=== PATIENT | female | born 1990 | race Caucasian/White ===

== ENCOUNTER → 2018-03-21 09:45 | Outpatient (CLI) | payer OTHER, SELFPAY ==
--- NOTE | 2018-03-21 | DI.MRI.S_ITS ---
PROCEDURE: MR KNEE LT WO CON INDICATIONS: LEFT KNEE INJURY TECHNIQUE: Noncontrast sagittal PD fast spin echo and T2 fast spin echo with fat saturation, sagittal 3-D FLASH with fat saturation; coronal T1 spin echo and PD fast spin echo with fat saturation, and axial PD fast spin echo with fat saturation through the knee. COMPARISON: None. FINDINGS: Image quality: Diagnostic. Bones and joint: There is no acute fracture or dislocation. No suspicious osseous lesions are evident. No significant knee joint effusion is identified. There is no Marie's cyst. No significant degenerative changes of the knee are evident. The hyaline articular cartilage is intact within all 3 compartments. Cruciate ligaments: The anterior and posterior cruciate ligaments are intact. There is mildly increased signal present involving anterior cruciate ligament. Menisci: No displaced tears of the medial and lateral menisci are evident. The posterior root ligaments are intact. Increased signal is evident along the periphery of the body and posterior horn of the medial meniscus. Medial structures: The medial collateral ligament is intact. The semimembranosus tendon insertion is intact. The imaged portions of the pes anserinus tendons are unremarkable. No significant fluid is contained within the pes anserinus bursa. Lateral structures: The popliteal tendon is intact. The lateral collateral ligament proper (fibular collateral ligament) and the proximal tibiofibular ligaments are intact. The distal aspect of the biceps femoris tendon and the iliotibial band are intact. Anterior structures: The quadriceps and patellar tendons are intact. However, the lateral margin of the proximal patellar tendon is noted to extend over the anterior aspect of the lateral femoral condyle. There is increased signal involving this portion of the tendon with moderate edema noted within the superolateral aspect of the infrapatellar fat pad. IMPRESSION: 1. Mild proximal patellar tendinopathy with adjacent edema of the infrapatellar fat pad is suggestive of lateral femoral condyle-patellar tendon friction syndrome and clinical correlation is recommended. 2. Increased signal involving the periphery of the medial meniscus may be within normal limits for this patient. There is no displaced medial meniscal tear. 3. Questionable anterior cruciate ligament sprain. No significant tearing. Dictated by: Rhett Banegas M.D. on 03/21/2018 at 10:50 Approved by: Rhett Banegas M.D. on 03/21/2018 at 10:57
== END ==
PROVIDERS: PCP Nurse Practitioner Family; Visit Provider Nurse Practitioner Family
DX: S89.92XA Unspecified injury of left lower leg, initial encounter (principal); M76.52 Patellar tendinitis, left knee
CPT/HCPCS: 73721

== ENCOUNTER → 2021-10-26 10:25 | Outpatient (CLI) | payer MEDICARE, MEDICAID, SELFPAY ==
[2021-10-26 11:15] LABS: Add Manual Diff / Slide Review NO; Basophils Absolute Auto 0 /uL (0-100); Basophils Percent Auto 0.3 % (0-2); Eosinophils Absolute Auto 100 /uL (0-450); Eosinophils Percent Auto 0.7 % (2-4); Hematocrit 34.5 % (36-46); Hemoglobin 11.8 g/dL (12.0-16.0); Lymphocytes Absolute Auto 1700 /uL (1100-4500); Lymphocytes Percent Auto 21.8 % (25-40); Mean Corpuscular HGB Conc 34.2 % (30-36); Mean Corpuscular Hemoglobin 30.2 PG (26-34); Mean Corpuscular Volume 88.3 fL (80-100); Monocytes Absolute Auto 400 /uL (0-900); Neutrophils Absolute Auto 5500 /uL (1500-7000); Neutrophils Percent Auto 72.2 % (50-75); Platelet Count 228 X10^3/uL (150-400); Red Blood Cell Count 3.91 X10^6/uL (4.0-5.2); Red Cell Distribution Width 12.7 % (11.6-14.8); White Blood Cell Count 7.6 X10^3/uL (4.5-11.0)
[2021-10-26 12:41] LABS: Hepatitis B Surface Antigen NEGATIVE s/c (NEGATIVE); Rubella Antibody IgG 89.2 IU/mL (>15)
[2021-10-26 13:00] LABS: HIV 1 & 2 Ab/Ag 4th Gen Combo NEGATIVE (NEGATIVE); Hep C Virus Ab w/Reflex Quant NEGATIVE s/c (NEGATIVE)
[2021-10-26 14:40] LABS: Urine N gonorrhoeae NOT DETECTED
[2021-10-26 15:53] LABS: Urine Chlamydia NOT DETECTED
[2021-10-27 04:42] LABS: RPR Screen Non Reactive (Non Reactive)
[2021-10-27 09:16] LABS: Varicella IgG Antibody <135 index (Immune >165)
== END ==
PROVIDERS: PCP Family Medicine; Referring Provider Specialist; Visit Provider Specialist
DX: Z34.81 Encounter for supervision of other normal pregnancy, first trimester (principal); Z3A.08 8 weeks gestation of pregnancy
CPT/HCPCS: 36415; 80055; 86787; 86803; 86850; 86900; 86901; 87086; 87389; 87491; 87591

== ENCOUNTER → 2022-01-26 12:19 | Outpatient (CLI) | payer MEDICARE, MEDICAID, SELFPAY ==
--- NOTE | 2022-01-26 12:23 | DI.US.S_ITS ---
PROCEDURE: US OB >= 14 WEEKS FETUS INDICATIONS: Anatomy scan OUTSIDE/PRIOR DATING DATA: Last menstrual period (LMP): August 28, 2021. LMP-based estimated date of delivery (DENNY): June 04, 2022. First dating scan (date): October 26, 2021. Estimated date of delivery (DENNY) from first dating scan: June 05, 2022. TECHNIQUE: Real-time scanning was performed of the fetus, with image documentation and biometric measurements. COMPARISON: None. FINDINGS: General: A single living intrauterine gestation is present. Presentation: Vertex. Placenta: Placental position is posterior , without previa. Amniotic fluid index: 12.7 cm, normal range is 5-24 cm. Single deepest vertical pocket is 3.8 cm. heart rate: 160 beats per minute. Maternal cervical canal: 4.2 cm long. Normal lower limit is 2.5 cm. biometrics: Biparietal diameter: 5.2 cm Head circumference: 19.8 cm Abdominal circumference: 17.3 cm Femur length: 3.5 cm Clinically estimated gestational age: 21 weeks, 3 days Composite gestational age from present scan: 21 weeks, 5 days Estimated weight and percentile: 440 g; 56 percentile Anatomic survey: Neuro: Ventricles are non-dilated at less than 10 mm. Cisterna magna is normal at 3-11 mm. Cerebellum is normal in size and morphology. Nuchal skin fold: Normal at less than 6 mm between 14-21 weeks gestational age. Face: Nose and lips, facial profile are normal. Spine: No evidence for spina bifida. Heart: 4-chambered heart is present, with normal ventricular outflow tracts. Diaphragm: Diaphragm is intact. Stomach: Left-sided stomach is present. Kidneys: No hydronephrosis. Normal is less than 5 mm in 2nd trimester, less than 7 mm in 3rd trimester. Cord: 3-vessel cord has orthotopic insertion. Bladder: Normal in size. Extremities: All 4 extremities identified. IMPRESSION: Live single intrauterine gestation as detailed above. We strive to produce accurate, complete, and clear reports of imaging services. To assist us in improving patient care, this report was composed using standard report templates and voice recognition software. Therefore, it may contain abnormal punctuation, insertions and/or omissions. Occasional wrong-word or sound-alike substitutions may occur. Though we review the report and make efforts to correct it, we do recommend that the report be read carefully in proper context to recognize any text inaccuracies. Dictated by: Won Berry M.D. on 01/26/2022 at 15:33 Approved by: Won Berry M.D. on 01/26/2022 at 15:35
== END ==
PROVIDERS: PCP Family Medicine; Referring Provider Specialist; Visit Provider Specialist
DX: Z34.82 Encounter for supervision of other normal pregnancy, second trimester (principal); Z3A.21 21 weeks gestation of pregnancy
CPT/HCPCS: 76811

== ENCOUNTER → 2022-03-24 14:26 | Outpatient (CLI) | payer MEDICARE, MEDICAID, SELFPAY ==
[2022-03-25 08:28] LABS: Candida species Positive (Negative); Gardnerella vaginalis Positive (Negative); Trichomoas vaginalis Negative (Negative)
== END ==
PROVIDERS: PCP Family Medicine; Visit Provider Specialist
DX: Z34.82 Encounter for supervision of other normal pregnancy, second trimester (principal); N89.8 Other specified noninflammatory disorders of vagina; Z3A.29 29 weeks gestation of pregnancy
CPT/HCPCS: 87086; 87480; 87510; 87660

== ENCOUNTER → 2022-04-21 09:41 | Outpatient (CLI) | payer MEDICARE, MEDICAID, SELFPAY ==
[2022-04-21 16:39] LABS: Hematocrit 33.8 % (36-46); Mean Corpuscular HGB Conc 32.6 % (30-36); Mean Corpuscular Hemoglobin 29.2 PG (26-34); Mean Corpuscular Volume 89.6 fL (80-100); Platelet Count 365 X10^3/uL (150-400); Red Blood Cell Count 3.77 X10^6/uL (4.0-5.2); Red Cell Distribution Width 13.4 % (11.6-14.8); White Blood Cell Count 16.2 X10^3/uL (4.5-11.0)
[2022-04-21 17:14] LABS: Alanine Aminotransferase 25 IU/L (<35); Albumin 3.7 g/dL (3.5-5.0); Albumin Globulin Ratio 1.1 (1.0-2.8); Alkaline Phosphatase 184 U/L (38-126); Aspartate Aminotransferase 35 IU/L (14-36); BUN Creatinine Ratio 7.7 (6-22); Bilirubin Total 0.6 mg/dL (0.2-1.3); Blood Urea Nitrogen 4 mg/dL (7-17); Calcium 10.6 mg/dL (8.4-10.2); Carbon Dioxide 21 mmol/L (22-32); Chloride 104 mmol/L (98-107); Estimated Glomerular Filt Rate > 60 mL/min (>60); Globulin 3.3 g/dL (1.7-4.1); Glucose 75 mg/dL (70-100); HEMOLYSIS 49 (0-50); Potassium 3.8 mmol/L (3.4-5.1); Sodium 135 mmol/L (137-145)
[2022-04-22 09:37] LABS: Bile Acids 3.5 umol/L (0.0-10.0)
== END ==
PROVIDERS: Referring Provider Obstetrics & Gynecology; Visit Provider Obstetrics & Gynecology
DX: L29.9 Pruritus, unspecified (principal); O99.719 Diseases of the skin and subcutaneous tissue complicating pregnancy, unspecified trimester
CPT/HCPCS: 36415; 80053; 82239; 85027

== ENCOUNTER → 2022-05-11 08:41 | Outpatient (CLI) | payer MEDICARE, MEDICAID, SELFPAY ==
[2022-05-12 07:52] LABS: Strep Grp B PCR NEG for Grp B Strep
== END ==
PROVIDERS: Visit Provider Obstetrics & Gynecology
DX: Z34.83 Encounter for supervision of other normal pregnancy, third trimester (principal); Z3A.36 36 weeks gestation of pregnancy
CPT/HCPCS: 87653

== ENCOUNTER → 2022-05-25 08:46 | Outpatient (CLI) | payer MEDICARE, MEDICAID, SELFPAY | PROVIDERS: Visit Provider Obstetrics & Gynecology | DX: Z34.83 Encounter for supervision of other normal pregnancy, third trimester (principal); Z3A.32 32 weeks gestation of pregnancy | CPT/HCPCS: 87086 ==

== ENCOUNTER 2022-06-02 08:21 | Inpatient (IN) | payer MEDICARE, MEDICAID, SELFPAY ==
[2022-06-02 09:31] LABS: Add Manual Diff / Slide Review NO; Basophils Absolute Auto 100 /uL (0-100); Basophils Percent Auto 0.6 % (0-2); Eosinophils Absolute Auto 100 /uL (0-450); Eosinophils Percent Auto 0.3 % (2-4); Hematocrit 32.6 % (36-46); Hemoglobin 10.8 g/dL (12.0-16.0); Lymphocytes Absolute Auto 3100 /uL (1100-4500); Lymphocytes Percent Auto 17.4 % (25-40); Mean Corpuscular HGB Conc 33.2 % (30-36); Mean Corpuscular Hemoglobin 28.5 PG (26-34); Mean Corpuscular Volume 85.8 fL (80-100); Monocytes Absolute Auto 600 /uL (0-900); Monocytes Percent Auto 3.5 % (3-14); Neutrophils Absolute Auto 13700 /uL (1500-7000); Neutrophils Percent Auto 78.2 % (50-75); Platelet Count 383 X10^3/uL (150-400); Red Cell Distribution Width 14.4 % (11.6-14.8); White Blood Cell Count 17.5 X10^3/uL (4.5-11.0)
--- NOTE | 2022-06-02 10:12 | PM.OBHP.1 ---
OB HPI Date/Time Date of admission: 06/02/22 Date Patient Seen: 06/02/22 Time Patient Seen: 10:26 History of Present Condition Chief complaint: Repeat C Section : 2 Para: 1 Estimated Gestational Age (weeks): 39week Narrative: Alem Diana is a 31 year old female at 39 weeks EGA who has a history of a prior section. she desires proceeding with repeat section for delivery. She was scheduled for her repeat later this afternoon and was brought in early due to calling with spontaneous rupture membranes and contractions. Patient had spontaneous rupture membranes followed by uncomfortable contractions. has been complicated by some episodes of chest pain with UD visits. She has had normal EKGs and evaluations. At her last evaluation she was diagnosed with gallstones, felt to be causing some of her discomfort. She has had no acute cholecystitis however. Indications Operative indications ( section): previous uterine surgery ( History of ) Other reason(s) for admission: spontaneous rupture membranes, labor History of Present care: good care Dating criteria: LMP confirmed by 1st trimester US Preadmission Labs Blood type: O (+) positive -: Antibody screen: negative, GBS status: negative, HBsAG: negative, HSV 1: negative and RPR/VDLR: negative -: Chlamydia screen: not detected and Gonorrhea screen: not detected -: Rubella: immune and Varicella: immune HCAB: negative Quad screen: Normal 1 hr GTT: 128 Evaluation Evaluation Baseline heart rate: 135 Variability: Average (6-10) monitor accelerations: Present Monitor Decelerations: Absent Contraction Frequency (minutes): 6 Uterine Contraction Intensity: Moderate Category of Tracing: Reactive Status: Category l Dilation (cm): 2 Effacement (%): 50 [facility] Medical History (Updated 06/02/22 @ 10:35 by Chrystal Cage MD) ADHD (~2016) Anemia Anxiety Carpal tunnel syndrome (~2009) delivery delivered (~12/08/14) Chronic back pain (~2005) Constipation Fatigue due to depression Heart murmur (~1992) Heavy menses (~2005) Hemorrhoids Hyperparathyroidism (~2021) Migraines (~1998) Personality disorder (~2012) PTSD (post-traumatic stress disorder) (~1999) Recurrent UTI Tinnitus (~2008) Family History (Updated 10/20/21 @ 10:42 by Terrie Werner RN) Mother Breast cancer Ovarian cancer Colon cancer Family estrangement Hypochondriacal disorder Bipolar 1 disorder Alcohol abuse Father Family estrangement Family history unknown Grandmother Brain tumor Schizophrenia Grandfather Hyperlipidemia Hypertension Myocardial infarction Hx of CABG Depression Grandmother Family history unknown Grandfather Family history unknown Sister Ovarian tumor (benign) Brother Schizophrenia Alcohol abuse Social History marital status: unmarried,single (Engaged, adolfo involved with .) number of children: 1 household members: children (Julián' has child, but he does not have custody. 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 ) current occupational exposures/hazards: No special brendon needs: No seatbelt use: always helmet use: Yes water heater temp set < 120 deg: Yes working smoke detector in home: Yes fire extinguisher in home: Yes carbon monox detector in home: Yes firearms in home: No do you feel safe at home: Yes Smoking Status: Current some day smoker (Still vaping some, trying to quit. Used to smoke 1 ppd, but varied off & on. ) Tobacco: How many years used: 3 quit status: quit date established (2017) second hand exposure: Yes (Partner vapes, not much around her. ) alcohol intake: former (Rare, < 1 x a month. ) substance use type: does not use during the past year weight has: decreased > 10 lbs well-balanced diet: rarely or never (Have a hard time eating) daily servings fruits/ve-1 caffeine: Yes (trying to cut back, but typically 6 sodas a day. ) frequency: does not exercise Meds Home Medications and Allergies Home Medications Medication Instructions Recorded Confirmed Type prenat.vits,alon,soc-vxom-tkuct 1 tab PO DAILY #90 tabs 10/01/21 05/11/22 Rx ferrous sulfate 300 mg (60 mg 300 mg (5 mL) PO DAILY Anemia and 10/26/21 05/11/22 Rx iron)/5 mL oral liquid inability to tolerate pills #120 mL omeprazole 40 mg capsule,delayed 40 mg PO DAILY acid reflux #30 caps 01/05/22 05/11/22 Rx release clindamycin HCl 300 mg capsule 300 mg PO TID Vaginal infection 03/25/22 05/11/22 Rx #21 caps fluconazole 150 mg tablet 150 mg PO Q3D Yeast infection 2 03/25/22 05/11/22 Rx (Diflucan) doses #2 tabs Allergies Allergy/AdvReac Type Severity Reaction Status Date / Time No Known Drug Allergies Allergy Verified 05/11/22 08:40 OB Exam Narrative Exam Narrative: General: Well-appearing female. Appears uncomfortable with contractions. Mildly anxious with the contractions. Cardio: Heart regular rhythm Lungs normal: inspiratory effort Abdomen gravid, nontender Extremities mild pedal edema Pelvic examination: Cervix 2/50% by CNM. Objective Labs Result Diagrams: 06/02/22 09:16 Labs: Laboratory Results - last 24 hr 06/02/22 09:16 WBC 17.5 H RBC 3.80 L Hgb 10.8 L Hct 32.6 L MCV 85.8 MCH 28.5 MCHC 33.2 RDW 14.4 Plt Count 383 Neut % (Auto) 78.2 H Lymph % (Auto) 17.4 L [place] % (Auto) 3.5 Eos % (Auto) 0.3 L Baso % (Auto) 0.6 Neut # (Auto) 75047 H Lymph # (Auto) 3100 [place] # (Auto) 600 Eos # (Auto) 100 Baso # (Auto) 100 Assessment and Plan Assessment and Plan Assessment and Plan narrative: 39 weeks EGA, History of prior section, desires repeat section for delivery. Spontaneous rupture membranes with labor, presenting a few hours prior to her scheduled section. EFM category 1, Reactive NST. Plan: Admitted. Awaiting COVID screen, then will transfer to the OR for her repeat section. Procedure reviewed with her, she confirms procedure as repeat section. Procedure reviewed in detail in the office at her last visit, including risks of the procedure. Reviewed risks of the procedure as bleeding, infection, injury to internal organs including bowel and bladder and risk of injury to the baby with uterine incision for delivery. Verbal and written consent previously obtained. She desires to proceed with the section for delivery. Time Spent with Patient Total time spent with greater than 50% in coordination of care (as documented) at patient's floor/unit and/or counseling patient:: less than 15 minutes
[2022-06-02 11:13] LABS: COVID19 -Nasal RAPID Negative (Negative)
[2022-06-02] MEDS: fentaNYL 100 MCG/2 ML INJ 50 MCG IV (11:18)
[2022-06-02] MEDS: CITRIC ACID/SODIUM CITRATE 15 ML SOLUTION 30 ML PO (11:18)
[2022-06-02] MEDS: CEFAZOLIN 2 GM/100 ML PREMIX 100 ML IV (12:50)
--- NOTE | 2022-06-02 13:04 | SUR.OPER ---
Supine on Padded OR bed, head on pillow, safety belt at thigh, arms secured on padded arm boards at <90 degrees abduction. Bump under right buttock. Legs uncrossed with pillow under knees, gel pad to heels, tape over blanket to lower legs.
--- NOTE | 2022-06-02 13:29 | SUR.OPER ---
Viable baby boy born at 1317. Placenta and cord blood given to OB RN Julio Contreras.
[2022-06-02 14:16] VITALS: BP 94/58; PULSE 58; RESP 15; TEMP 36.4; O2SAT 99
[2022-06-02 14:21] VITALS: BP 93/67; PULSE 75; RESP 13; O2SAT 97
[2022-06-02 14:26] VITALS: BP 95/57; PULSE 57; RESP 11; O2SAT 100
[2022-06-02] MEDS: ONDANSETRON 4 MG/2 ML INJ IV ×2 (14:30→17:42)
--- NOTE | 2022-06-02 14:39 | P.OP_ITS ---
Operative Date/Time/Diagnoses Date of procedure: 06/02/22 Time of procedure: 13:30 Pre-op diagnosis: 39 week , prior section, desires repeat section for delivery Darin breech presentation Spontaneous rupture membranes, labor Post-op diagnosis: same Procedure & Clinicians Procedure: Repeat lower transverse section Same procedure as scheduled: Yes Indications: 31-year-old female at 39 weeks gestation with a history of prior section for delivery. She desired repeat section for delivery. She was scheduled for her repeat today and arrived early with spontaneous rupture membranes and labor. Cervix was 2 cm/50%, consistent with early labor. Ultrasound confirmed persistent darin breech presentation. She was transferred to the OR after all her labs, Covid screen returned. Surgeon: Chrystal Cage Poultry Field Service Technician: David Washington Anesthesia Type: Spinal Operative Notes Findings: Vigorous male infant delivered from the darin breech presentation. Time of 1317, weight 3660 g. Apgars 9 and 9 at 1 and 5 minutes respectively Normal appearing uterus and bilateral tubes and ovaries. Closure Type: primary Specimen(s): other (Cord blood) Estimated Blood Loss (mL): 400 Blood products transfused: none Procedure in detail: IV fluids: 1800 ml crystalloid Urine output: 600 mL EBL: 400 ml Description of procedure: The patient was transferred from the center to the operating room. Spinal anesthesia was placed by the anesthesiologist. She was placed in the supine position. FHR auscultated, and was normal after the spinal anesthesia. Shirley catheter was placed and she was prepped and draped in routine sterile fashion. Time-out was taken and the patient and procedure was identified. Anesthesia level was tested and was adequate. A Pfannenstiel skin incision was made in the lower abdomen through her prior transverse skin incision and carried down to the level of the fascia. The fascia was incised in the midline and was extended transversely. The superior and inferior edges of the fascia were elevated and dissected off the rectus muscles with sharp and blunt dissection. The muscles already had a separation in the midline superiorly. They were scarred in the midline inferiorly and scar tissue was incised and muscles then bluntly . The parietal peritoneum was elevated, incised and extended bluntly and with sharp dissection. The bladder blade was placed. The visceral peritoneum was elevated off the lower uterus, incised and the bladder flap was bluntly created. The bladder blade retractor was placed. A transverse incision was made in the lower uterus and the incision was extended transversely with blunt dissection. Membranes were already ruptured prior to the procedure. Clear fluid was noted. The was noted to be in the darin breech position.The baby's buttocks was elevated and delivered through the uterine incision. The legs were sequentially delivered by flexing the legs at the hip. The baby was turned sacrum anterior and delivered to the level of the chest. The was then turned left arm anterior and that arm was delivered with cat's paw maneuver, with gentle pressure on the humerus. The infant was then turned right arm anterior and the right arm was delivered in similar fashion. The infant was turned back sacrum anterior and the baby's body was elevated and the head was delivered with continued gentle fundal assistance by the educational assistant teacher and gentle pressure on the infant's upper maxillary area. The head was delivered without difficulty. The infant cried spontaneously. Bulb suction was performed for some fluid within the infant's mouth. After 1 minute cord was clamped and cut. The was wrapped in a sterile blanket since the mother preferred not to view the baby with any body fluids on him. Baby was shown to the parent and was handed off to respiratory therapy who was present for delivery. Cord blood was obtained a specimen. The placenta did not deliver with cord traction and uterine massage. It was noted to have a posterior attachment and was manually removed. It was intact. Some trailing membranes were removed. The uterus was swept clean of adherent clots and membranes. The uterus was brought through the abdominal incision and closed in 1 layers with 0 Vicryl, the 1st layer being in running locking continuous fashion. Due to a very thin lower uterine segment, a 2nd layer was not placed, due for concerned with tearing with pulling suture through the inferior portion of the uterus to place a 2nd layer. There was some focal bleeding along the right side of her incision which was controlled with 2 [id number] sutures of 0 Vicryl. Hemostasis was noted. The tubes and ovaries were inspected and noted to be normal. The uterus was placed back into the maternal abdomen. The paracolic gutters were inspected and wiped of some minimal blood and fluid. The anterior cul-de-sac was inspected and some clot was removed. The uterine incision was re- inspected and good hemostasis was noted. The pelvis was irrigated. Repeat inspection showed continued hemostasis. The abdomen was closed. The peritoneum was closed with a running suture of 2-0 Vicryl. The muscles were reapproximated with 3 interrupted sutures of 0 Vicryl. The fascia was closed with 2 lengths of running continuous suture of 0 Vicryl, meeting in the midline.. The skin was closed with a subcuticular suture of 4-0 Monocryl. Steri-Strips and sterile Aquacel dressing was placed. She tolerated the procedure well and went to the recovery room in stable condition. Post-operative Condition: stable Disposition: PACU Plan for aftercare: Transferred to the floor for routine postoperative and care.
[2022-06-02] MEDS: LACTATED RINGERS 1,000 ML 100 ML IV (15:19)
[2022-06-02 16:34] VITALS: BP 126/86
[2022-06-02] MEDS: KETOROLAC 30 MG/ML VIAL IV (21:13)
[2022-06-02] MEDS: LANOLIN OINT 7 GM 1 APPLIC TOP (21:14)
[2022-06-03] MEDS: OXYCODONE IR 5 MG TABLET PO ×4 (02:16→23:20)
[2022-06-03] MEDS: KETOROLAC 30 MG/ML VIAL IV ×2 (04:45→09:42)
[2022-06-03 09:00] LABS: Add Manual Diff / Slide Review NO; Basophils Absolute Auto 0 /uL (0-100); Basophils Percent Auto 0.3 % (0-2); Eosinophils Absolute Auto 0 /uL (0-450); Eosinophils Percent Auto 0.3 % (2-4); Hematocrit 29.9 % (36-46); Hemoglobin 9.8 g/dL (12.0-16.0); Lymphocytes Absolute Auto 2500 /uL (1100-4500); Lymphocytes Percent Auto 17.5 % (25-40); Mean Corpuscular Hemoglobin 28.4 PG (26-34); Mean Corpuscular Volume 86.3 fL (80-100); Monocytes Absolute Auto 700 /uL (0-900); Monocytes Percent Auto 4.9 % (3-14); Neutrophils Absolute Auto 11100 /uL (1500-7000); Platelet Count 338 X10^3/uL (150-400); Red Blood Cell Count 3.46 X10^6/uL (4.0-5.2); Red Cell Distribution Width 14.5 % (11.6-14.8); White Blood Cell Count 14.4 X10^3/uL (4.5-11.0)
[2022-06-03] MEDS: DOCUSATE 100 MG CAPSULE 200 MG PO (09:43)
[2022-06-03] MEDS: ACETAMINOPHEN 325 MG TABLET 650 MG PO (14:24)
[2022-06-03 15:00] VITALS: BP 118/60; PULSE 72; RESP 16; TEMP 36.9
--- NOTE | 2022-06-03 15:18 | P.PNOB_ITS ---
Subjective - OB Subjective Patient comments: incisional pain (Discomfort is controlled with the pain medication.), tolerating diet and flatus present baby status: doing well feeding status: exclusively breast feeding Narrative: Lochia is normal. She is ambulating well. She is hoping to go tomorrow as she lost her daycare for her other child and wants to pick him in the afternoon. No fevers or chills. No nausea. Date Patient Seen: 06/03/22 Time Patient Seen: 13:30 Exam Vital Signs (past 8 hours): Oxygen Delivery Method Room Air Temp 97.4F, BP 122/67, Pulse 73 Narrative Exam Narrative: General: ?Well-appearing female Abdomen: ?Soft, nontender, nondistended. ?Fundus @U, firm, nontender Extremities: ?Mild pedal edema, decreasing Objective Labs Result Diagrams: 06/03/22 08:40 Labs: Laboratory Results - last 24 hr 06/03/22 08:40 WBC 14.4 H RBC 3.46 L Hgb 9.8 L Hct 29.9 L MCV 86.3 MCH 28.4 MCHC 33.0 RDW 14.5 Plt Count 338 Neut % (Auto) 77.0 H Lymph % (Auto) 17.5 L [place] % (Auto) 4.9 Eos % (Auto) 0.3 L Baso % (Auto) 0.3 Neut # (Auto) 53872 H Lymph # (Auto) 2500 [place] # (Auto) 700 Eos # (Auto) 0 Baso # (Auto) 0 Assessment & Plan Plan day: 1 plan OB: routine postop care Comments: Doing well. She has had GI return with passing flatus. Discussed anticipate being able to discharge the patient tomorrow tomorrow if she continues to doing well. As long as baby ready for discharge, then can go home tomorrow. Currently baby does appear to be doing well. Preliminary discharge instructions and precautions reviewed for tomorrow. She will follow-up in 1 week for Aquacel dressing removal. Time Spent With Patient Time: Total time spent is greater than 50% in coordination of care (as documented) at patient's floor/unit and/or counseling patient: Time with patient: less than 15 minutes
[2022-06-03] MEDS: IBUPROFEN 600 MG TABLET PO ×2 (16:08→23:21)
[2022-06-03] MEDS: SIMETHICONE 80 MG TABLET PO (19:31)
[2022-06-04] MEDS: IBUPROFEN 600 MG TABLET PO (06:47)
[2022-06-04] MEDS: OXYCODONE IR 5 MG TABLET PO (06:47)
[2022-06-04] MEDS: ACETAMINOPHEN 325 MG TABLET 650 MG PO (08:15)
[2022-06-04] MEDS: DOCUSATE 100 MG CAPSULE 200 MG PO (08:15)
--- NOTE | 2022-06-04 10:20 | PM.OBDS.1 ---
Discharge Providers Provider Date of admission: 06/02/22 08:21 Discharge Date: 06/04/22 Primary care physician: Doctor Anika MD Consults: 06/02/22 15:16 Consult to Civil Design Technician Routine Comment: Discharge provider: Laurence Kuo MD Summary Hospital Course Date Patient Seen: 06/04/22 Time Patient Seen: 10:20 Diagnoses: 39 week gestation status post repeat low-transverse section and breech presentation Hospital Course: Patient arrived on Labor and delivery in active labor in breech presentation with prior section. She had a repeat low-transverse section of a viable male . She is urinating and ambulating well. She is passing gas. Pain is controlled. No headaches, scotomata, epigastric pain. Mild lochia. Peripartum Data Infant Delivery Method: Section (Repeat and breech presentation in active labor) Procedures: Repeat low-transverse section complications: none 1: Gender: Male Disposition of : home Discharge Diagnosis (1) Delivery by section for breech presentation: Status: Acute Problem Details: And repeat section Status at Discharge Cognitive/behavioral status at discharge: oriented Functional status at discharge: independent ambulation Overall status at discharge: patient is progressing back to baseline Time Spent with Patient Time attestation: Total time spent providing and/or coordinating discharge services: Time spent: Less than 30 minutes Objective Labs Result Diagrams: 06/03/22 08:40 Exam Vital Signs (past 8 hours): Blood pressure 147/91 with prior blood pressure 110/53, pulse of 78, temperature 98.6? Oxygen Delivery Method Room Air Narrative Exam Narrative: Abdomen is soft, nontender. Uterus is firm, at U, nontender. Dressing is clean, dry, intact. Mild lochia. Extremities without edema and nontender. Patient is O positive, rubella immune, received Tdap in the 3rd trimester. Discharge Plan Discharge Plan Patient Disposition: Home Provider Discharge Comment: s/p repeat section at term Discharge orders & Medications Prescriptions: New acetaminophen 325 mg Tablet 650 mg PO Q6H PRN (Reason: Fever/Mild Pain (1-3)) Qty: 20 0RF oxycodone 5 mg Tablet See Rx Instructions .ROUTE .COMPLEX PRN (Reason: Pain, Moderate (4-6)) Qty: 20 0RF Rx Instructions: 1 to 2 tabs every 4-6 hours as needed for pain Purelan Cream 1 applic topical PRN PRN (Reason: Post Delivery) Qty: 7 0RF ibuprofen 600 mg tablet 600 mg PO Q8H PRN (Reason: pain) Qty: 60 0RF Continued prenat.vits,alon,lbs-jwfl-otuka Tablet 1 tab PO DAILY Qty: 90 3RF ferrous sulfate 300 mg (60 mg iron)/5 mL liquid 300 mg PO DAILY Qty: 120 8RF omeprazole 40 mg capsule,delayed release(DR/EC) 40 mg PO DAILY Qty: 30 4RF Discontinued clindamycin HCl 300 mg capsule 300 mg PO TID Qty: 21 0RF fluconazole [Diflucan] 150 mg tablet 150 mg PO Q3D Qty: 2 0RF Follow up/Referrals: Chrystal Cage MD [Physician] - 1 Week (Aquacel removal) Doctor Donaldson MD [Primary Care Provider] - 06/09/22 11:45 am (1 week aquacel dressing removal @ 11:45 (11:30 AM check in), 6 week appointment @ 11:15 AM (11:00 check in)) Discharge Health Status Multidrug resistant organism: No MDRO Diet/Activity/Treatments Diet: Regular Activity: Nothing in the vagina for 6 weeks. No tampons and no intercourse. Do not lift over 20 lb for 6 weeks Skin/Wound/Dressing Care Report to your healthcare provider any signs of infection, such as:: chills, fever and increased pain Visit Report/Discharge Packet Instructions: DI for Discharge Data Primary Care Provider: Doctor Anika
--- NOTE | 2022-07-18 10:11 | P.DS_ITS ---
Discharge Providers Provider Date of admission: 06/02/22 08:21 Discharge Date: 06/04/22 Primary care physician: Doctor Anika MD Consults: 06/02/22 15:16 Consult to Supervisor Shuttle Preparation Routine Comment: Discharge provider: Laurence Kuo MD Summary Hospital Course Date Patient Seen: 06/04/22 Diagnoses: 39 week , delivered Status post repeat section for delivery. Breech presentation Spontaneous rupture of membranes Hospital Course: Patient arrived on Labor and delivery in active labor at 39 weeks on the day of her scheduled C section in breech presentation with prior section. She had a repeat low-transverse section of a viable male infant. She had a normal postoperative course. She had normal return of bowel function. She is urinating and ambulating well. She is passing gas. Pain is controlled. No headaches, scotomata, epigastric pain. Mild lochia. Peripartum Data Infant Delivery Method: Section Discharge Diagnosis (1) Delivery by section for breech presentation: Status: Acute Problem Details: repeat section Status at Discharge Cognitive/behavioral status at discharge: oriented Overall status at discharge: patient is progressing back to baseline Time Spent with Patient Time attestation: Total time spent providing and/or coordinating discharge services: Objective Labs Result Diagrams: 06/03/22 08:40 Exam Vital Signs (past 8 hours): Oxygen Delivery Method Room Air Discharge Plan Discharge Plan Patient Disposition: Home Provider Discharge Comment: s/p repeat section at term Discharge orders & Medications Prescriptions: New acetaminophen 325 mg Tablet 650 mg PO Q6H PRN (Reason: Fever/Mild Pain (1-3)) Qty: 20 0RF Purelan Cream 1 applic topical PRN PRN (Reason: Post Delivery) Qty: 7 0RF ibuprofen 600 mg tablet 600 mg PO Q8H PRN (Reason: pain) Qty: 60 0RF Continued prenat.vits,alon,epc-xtib-ahvej Tablet 1 tab PO DAILY Qty: 90 3RF ferrous sulfate 300 mg (60 mg iron)/5 mL liquid 300 mg PO DAILY Qty: 120 8RF omeprazole 40 mg capsule,delayed release(DR/EC) 40 mg PO DAILY Qty: 30 4RF Discontinued clindamycin HCl 300 mg capsule 300 mg PO TID Qty: 21 0RF fluconazole [Diflucan] 150 mg tablet 150 mg PO Q3D Qty: 2 0RF No Action fluconazole 150 mg tablet 150 mg PO ONCE Qty: 1 1RF Rx Instructions: as a single dose metronidazole 0.75 % (37.5mg/5 gram) gel 1 appful vaginal BEDTIME 5 Days Qty: 70 0RF Mirena 20 mcg/24 hours (7 yrs) 52 mg intrauterine device intrauterine Rx Instructions: Inserted 07/13/22 Follow up/Referrals: Chrystal Cage MD [Physician] - 1 Week (Aquacel removal) Doctor Donaldson MD [Primary Care Provider] - 06/09/22 11:45 am (1 week aquacel dressing removal @ 11:45 (11:30 AM check in), 6 week appointment @ 11:15 AM (11:00 check in)) Discharge Health Status Multidrug resistant organism: No MDRO Diet/Activity/Treatments Diet: Regular Activity: Nothing in the vagina for 6 weeks. No tampons and no intercourse. Do not lift over 20 lb for 6 weeks Skin/Wound/Dressing Care Report to your healthcare provider any signs of infection, such as:: chills, fever and increased pain Visit Report/Discharge Packet Instructions: DI for Discharge Data Primary Care Provider: Doctor Anika
== END 2022-06-04 11:50 | disposition home or self-care (01) | DRG 788 ==
PROVIDERS: Admitting Provider Obstetrics & Gynecology; Referring Provider Obstetrics & Gynecology; Visit Provider Obstetrics & Gynecology
PROC: 10D00Z1 Extraction of Products of Conception, Low, Open Approach (ICD-10-PCS; CPT 59514; principal; 2022-06-02 10:30)
DX: O34.211 Maternal care for low transverse scar from previous cesarean delivery (principal); O64.8XX0 Obstructed labor due to other malposition and malpresentation, not applicable or unspecified; Z3A.39 39 weeks gestation of pregnancy; Z37.0 Single live birth; O99.02 Anemia complicating childbirth; O99.344 Other mental disorders complicating childbirth; F41.9 Anxiety disorder, unspecified; F32.A Depression, unspecified; Z20.822 Contact with and (suspected) exposure to COVID-19
CPT/HCPCS: 36415; 59050; 59510; 59514; 85025; 86850; 86900; 86901; 87635; C9803; J0690; J1885; J2250; J2274; J2405; J3010

== ENCOUNTER → 2022-07-13 15:28 | Outpatient (CLI) | payer MEDICARE, MEDICAID, SELFPAY ==
[2022-07-15 05:40] LABS: Candida species Positive (Negative); Gardnerella vaginalis Positive (Negative); Trichomoas vaginalis Negative (Negative)
== END ==
PROVIDERS: PCP Family Medicine; Visit Provider Obstetrics & Gynecology
DX: N89.8 Other specified noninflammatory disorders of vagina (principal)
CPT/HCPCS: 87480; 87510; 87660

== ENCOUNTER → 2022-09-21 13:41 | Outpatient (CLI) | payer MEDICARE, MEDICAID, SELFPAY | PROVIDERS: PCP Family Medicine; Visit Provider Obstetrics & Gynecology | DX: N89.8 Other specified noninflammatory disorders of vagina (principal) | CPT/HCPCS: 87070; 87205 ==